=== PATIENT | male | born 1965 | race African-American/Black ===

== ENCOUNTER 2018-08-30 21:00 | Emergency (ER) | payer OTHER ==
[2018-08-30] MEDS ORDERED: RINGERS SOLUTION,LACTATED 1,000 ML IV ONE (22:13)
[2018-08-30 22:27] LABS: HEMOGLOBIN 14.7 g/dL (13.5-17.0); MEAN CORPUSCULAR HEMOGLOBIN 30.3 pg (27.0-33.4); MEAN CORPUSCULAR HGB CONC 33.5 g/dL (32.0-36.0); MEAN CORPUSCULAR VOLUME 91 fl (80-97); PLATELET COUNT 214 10^3/uL (150-450); RED BLOOD COUNT 4.86 10^6/uL (4.35-5.55); RED CELL DISTRIBUTION WIDTH 13.6 % (11.5-14.0); WHITE BLOOD COUNT 7.7 10^3/uL (4.0-10.5)
[2018-08-30 22:45] LABS: ANION GAP 11 (5-19); BLOOD UREA NITROGEN 16 mg/dL (7-20); CALCIUM 9.1 mg/dL (8.4-10.2); CARBON DIOXIDE 24 mmol/L (22-30); CHLORIDE 100 mmol/L (98-107); POTASSIUM 4.6 mmol/L (3.6-5.0); SODIUM 135.3 mmol/L (137-145)
[2018-08-30 22:53] LABS: GLUCOSE 617 mg/dL (75-110)
[2018-08-30 23:02] LABS: VENOUS BLOOD BASE EXCESS 0.9 mmol/L; VENOUS BLOOD HCO3 27.4 mmol/L (20-32); VENOUS BLOOD PCO2 50.3 mmHg (35-63); VENOUS BLOOD PH 7.35 (7.30-7.42)
[2018-08-30] MEDS ORDERED: INSULIN REG, HUMAN 100 UNIT/ML 3 ML VIAL (PYX) SUBCUT ONE (23:48)
[2018-08-31] MEDS ORDERED: GLIPIZIDE XL 5 MG TAB.ER.24 PO ONE (00:06)
[2018-08-31] MEDS ORDERED: METFORMIN HCL 500 MG TABLET PO ONE (00:06)
--- NOTE | 2018-08-31 00:13 | ER Document Report ---
ED General - General Chief Complaint: High Blood Sugar Stated Complaint: BLOOD SUGAR ISSUE Time Seen by Provider: 08/30/18 22:12 Primary Care Provider: CELIO DEL REAL MD [Primary Care Provider] - Follow up as needed Notes: Patient is a 52-year-old male with a past medical history of essential hypertension who presents with several months of polyuria, polydipsia, and intermittent blurring of vision. States that he checked his blood sugar tonight on his daughter's glucometer, found was reading high prompting him to come to the emergency department. He does not formally carry a diagnosis of diabetes. Nothing seems to improve or worsen his symptoms. Symptoms have been worsening over the past several months. He did see his primary care doctor, had blood work done but states he never got the results. He denies any chest pain or shortness of breath. No focal abdominal pain. No focal weakness or numbness. Denies any current symptoms at the time of my assessment. TRAVEL OUTSIDE OF THE [place] IN LAST 30 DAYS: No - Related Data Allergies/Adverse Reactions: No Known Allergies Allergy (Unverified 08/30/18 22:29) Past Medical History - General Information source: Patient - Social History Smoking Status: Never Smoker Frequency of alcohol use: None Drug Abuse: None Lives with: Spouse/Significant other Family History: Reviewed & Not Pertinent Patient has suicidal ideation: No Patient has homicidal ideation: No - Past Medical History Cardiac Medical History: Reports: Hx Hypertension Renal/ Medical History: Denies: Hx Peritoneal Dialysis Review of Systems - Review of Systems Notes: Constitutional: Negative for fever. Positive polyuria and polydipsia HENT: Negative for sore throat. Eyes: Positive for intermittent blurring of vision Cardiovascular: Negative for chest pain. Respiratory: Negative for shortness of breath. Gastrointestinal: Negative for abdominal pain, vomiting or diarrhea. Genitourinary: Negative for dysuria. Musculoskeletal: Negative for back pain. Skin: Negative for rash. Neurological: Negative for headaches, weakness or numbness. 10 point ROS negative except as marked above and in HPI. Physical Exam - Vital signs Vitals: Temp Pulse Resp BP Pulse Ox 98.1 F 82 18 165/97 H 97 08/30/18 21:10 08/30/18 21:10 08/30/18 21:10 08/30/18 21:10 08/30/18 21:10 Interpretation: Hypertensive Notes: PHYSICAL EXAMINATION: GENERAL: Well-appearing, well-nourished and in no acute distress. HEAD: Atraumatic, normocephalic. EYES: Pupils equal round and reactive to light, extraocular movements intact, sclera anicteric, conjunctiva are normal. ENT: nares patent, oropharynx clear without exudates. Moderately dry mucous membranes. NECK: Normal range of motion, supple without lymphadenopathy LUNGS: Breath sounds clear to auscultation bilaterally and equal. No wheezes ra les or rhonchi. HEART: Regular rate and rhythm without murmurs ABDOMEN: Soft, nontender, normoactive bowel sounds. No guarding, no rebound. No masses appreciated. EXTREMITIES: Normal range of motion, no pitting or edema. No cyanosis. NEUROLOGICAL: No focal neurological deficits. Moves all extremities spontaneously and on command. PSYCH: Normal mood, normal affect. SKIN: Warm, Dry, normal turgor, no rashes or lesions noted. Course - Re-evaluation Re-evalutation: 08/31/18 00:07 Presentation of hyperglycemia with associated polyuria and polydipsia. The patient is also had intermittent blurring of vision. There is no evidence of HHS or diabetic ketoacidosis on laboratories or based on clinical history. Patient's vitals are within normal limits. Treatment with insulin and IV fluids given here in the emergency department with appropriate response of the blood sugar. Patient does have primary care follow-up. Patient has been started on metformin and glipizide. We did discuss dietary changes at length. At this time will discharge with return precautions and follow-up recommendations. Verbal discharge instructions given a the bedside and opportunity for questions given. Medication warnings reviewed. Patient is in agreement with this plan and has verbalized understanding of return precautions and the need for primary care follow-up in the next 24-72 hours. 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 You did not have any evidence of a dangerous condition associated with these blood sugars at this time. However, it is very important that you get your blood sugars under control. Please take all of your medications exactly as directed. You should avoid foods that are high in carbohydrates and sugary foods. Losing weight will also help to better control your blood sugars. Please return to emergency department immediately if you develop weakness, persistent vomiting, confusion, or any other symptoms that are concerning to you. Prescriptions: Glipizide [Glipizide Xl] 10 mg PO DAILY #30 tab.er.24 Metformin HCl [Glucophage 500 mg Tablet] 500 mg PO BID #60 tablet Referrals: CELIO DEL REAL MD [Primary Care Provider] - Follow up tomorrow
[2018-08-31] MEDS ORDERED: GLIPIZIDE 5 MG TABLET ONE (00:28)
[2018-08-31 01:42] VITALS: BP 162/111
== END 2018-08-31 01:20 | disposition home or self-care (01) ==
LOC: ER 21:00
DX: E11.65 Type 2 diabetes mellitus with hyperglycemia (principal); I10 Essential (primary) hypertension; R63.1 Polydipsia; R35.8 Other polyuria
CPT/HCPCS: 99284; 36415; 82962; 85027; 80048; 83036; 82803; J1815; J7120

== ENCOUNTER 2019-09-21 06:07 | Day surgery (SDC) | payer BC, OTHER ==
[2019-09-08 11:19] LABS: INTERNATIONAL RATION (INR) 1.03; PARTIAL THROMBOPLASTIN TIME 29.1 SEC (23.5-35.8); PROTHROMBIN TIME 13.5 SEC (11.4-15.4)
[2019-09-08 11:23] LABS: HEMATOCRIT 43.8 % (37.9-51.0); HEMOGLOBIN 15.3 g/dL (13.5-17.0); MEAN CORPUSCULAR HEMOGLOBIN 29.8 pg (27.0-33.4); MEAN CORPUSCULAR VOLUME 85 fl (80-97); PLATELET COUNT 207 10^3/uL (150-450); RED BLOOD COUNT 5.14 10^6/uL (4.35-5.55); WHITE BLOOD COUNT 5.4 10^3/uL (4.0-10.5)
--- NOTE | 2019-09-08 22:39 | EKG REPORT ---
SEVERITY:- BORDERLINE ECG - SINUS RHYTHM BORDERLINE T ABNORMALITIES, INFERIOR LEADS : Confirmed by: Alisha Ernst 08-Sep-2019 22:38:36
[~2019-09-21 06:07] MED LIST: CEFAZOLIN 1 GM/D5W RTU 1 GM/50 ML RTUPB IV ONE; CEFAZOLIN 1 GM/D5W RTU 1 GM/50 ML RTUPB IV PRN; FENTANYL CITRATE INJ/PF 100 MCG/2 ML AMPUL ONE; LACTATED RINGERS 1000 ML IV PRN; LIDOCAINE 0.5% INJ-PF (5 MG/ML) 50 ML SDV SUBCUT PRN; LIDOCAINE 2% INJ-PF (20 MG/ML) 10 ML AMPUL ONE; MIDAZOLAM 2 MG/2 ML INJ ONE; ONDANSETRON HCL INJ/PF 4 MG/2 ML SDV ONE; PROPOFOL INJ 200 MG/20 ML VIAL IV ONE; SUCCINYLCHOLINE CHLORIDE INJ 200 MG/10 ML VIAL ONE
[2019-09-21] MEDS ORDERED: SODIUM BICARBONATE 4.2% INJ (2.5 MEQ/5 ML) VIAL ONE (07:37)
[2019-09-21] MEDS ORDERED: LIDOCAINE 1%/EPINEPHRINE INJ 20 ML VIAL ONE (07:38)
[2019-09-21] MEDS ORDERED: AMLODIPINE BESYLATE 10 MG TABLET PO ONE (08:00)
[2019-09-21] MEDS ORDERED: FENTANYL CITRATE INJ/PF 100 MCG/2 ML AMPUL IV PRN ×3 (08:42)
[2019-09-21] MEDS ORDERED: DIPHENHYDRAMINE HCL 50 MG/ML VIAL IV PRN (08:42)
[2019-09-21] MEDS ORDERED: ONDANSETRON HCL INJ/PF 4 MG/2 ML SDV IV PRN (08:42)
[2019-09-21] MEDS ORDERED: PROMETHAZINE HCL INJ 25 MG/1 ML VIAL IV PRN ×2 (08:42)
--- NOTE | 2019-09-21 10:01 | Operative Report ---
Operative Report DATE OF SURGERY: 09/21/19 PREOPERATIVE DIAGNOSIS: Subfascial mass of the right of the midline posterior s calp POSTOPERATIVE DIAGNOSIS: Same OPERATION: Excision of right of the midline posterior scalp subfascial mass with closure SURGEON: ANKITA JARVIS ANESTHESIA: GA TISSUE REMOVED OR ALTERED: Lipoma of the right of the midline posterior scalp COMPLICATIONS: None ESTIMATED BLOOD LOSS: 5 cc PROCEDURE: The patient was brought into the operating room after being marked. The patient was placed in a prone position . The patient was then prepped with a Betadine scrub and Betadine solution. A timeout was performed. The area for resection was outlined. Injection of 1% lidocaine with epinephrine and bicarbonate was performed for its anesthetic and hemostatic effects. An incision was then made through the skin into the subcutaneous tissue. Dissection was performed [id number] to encounter the mass. There was a very thick fascial covering of the mass which had to be opened to encounter the subfascial mass. Once the mass was encountered a dissection was performed 360 in order to remove the mass Retraction was used to facilitate exposure. Dissection was performed through the deep fascial layer which was split and the mass was contained between the 2 layers of the deep fascia. The dissection was performed in the space between the 2 fascial layers of the deep fascia. [id number] the mass was dissected free of the surrounding tissue. Throughout the case hemostasis was achieved with the bipolar and the Bovie. Once the mass was completely dissected it was then removed. The area was washed with Betadine and sterile water solution. Hemostasis was confirmed. Closure was then performed using 3-0 Vicryl sutures. Because of the size of the mass deeper sutures were placed in order to minimize a deformity. The layers that were dissected were closed [id number] until we reached the deep dermis. 3-0 Vicryl was used for deep dermal sutures. A subcuticular stitch was placed using 3-0 PDS. A central support stitch was placed using 3-0 PDS. The wound was cleaned with Betadine prior to the final closure. Surgical glue was applied with a light pressure dressing was applied. Patient was then reversed from anesthesia and taken to the [facility] for recovery. The approximate size of the mass was 3.25 cm approximately. This dictation was performed with dragon naturally speaking. If there are any inconsistencies or errors please contact the physician. Subjective: No complaints Objective: Vital signs stable afebrile No bleeding Dressing intact Assessment and plan: Doing well. Elevate the operative site. Resume medications. Take antibiotics for 1 day Follow-up Full instructions were given to the patient and family and they understand Portions of this note may be dictated using [employer] voice recognition software. Occasional variations and spelling and vocabulary could be possible and are unintentional. Additionally, there is a chance that some errors may not be caught or corrected. Please notify the offer of any discrepancies noted or if any statements are unclear.
--- NOTE | 2019-09-21 10:03 | Discharge Summary ---
Discharge Summary (SDC) - Discharge Final Diagnosis: Subfascial mass of the right of the midline posterior scalp Date of Surgery: 09/21/19 Condition: Good Treatment or Instructions: Antibiotics for 1 day, then discontinue. Elevate operative area to decrease swelling. Do not strain, or lift heavy objects. Call for excessive bleeding, increased temperature of 101, uncontrolled pain, or excessive nausea or vomiting. You may reach Dr. Dallas through his office at [phone]. In the event of an emergency after hours, then contact Dr. Dallas through [facility]. Return to the office for a postop check on . The time will be scheduled by the nursing staff of [facility] prior to discharge. Please give the patient a copy of their labs and EKG so they can bring this to their PMD. Thank you Portions of this note may be dictated using [employer] voice recognition software. Occasional variations and spelling and vocabulary could be possible and are unintentional. Additionally, there is a chance that some errors may not be caught or corrected. Please notify the offer of any discrepancies noted or if any statements are unclear. Referrals: CELIO DEL REAL MD [Primary Care Provider] - Discharge Diet: As Tolerated Discharge Activity: No Lifting/Push/Pulling Report the Following to Your Physician Immediately: Unusual Bleeding - Keep head straight. Do not twist the neck. No bending or straining. No heavy lifting. Do not flex the neck. Keep the neck extended.
[2019-09-21 11:40] VITALS: BP 149/96
== END 2019-09-21 11:35 | disposition home or self-care (01) ==
LOC: OROUT 06:07
PROVIDERS: ATTEND Plastic Surgery
DX: D17.0 Benign lipomatous neoplasm of skin and subcutaneous tissue of head, face and neck (principal); I10 Essential (primary) hypertension; Z79.899 Other long term (current) drug therapy; E11.9 Type 2 diabetes mellitus without complications
CPT/HCPCS: 93005; 36415; 82962; 85027; 85610; 85730; 88305 ×2; 93010; 21014; J2250; J0690; J3010; J3490 ×3; J0330; J2405; J2704

== ENCOUNTER 2020-03-02 19:47 | Emergency (ER) | payer BC ==
[2020-03-02] MEDS ORDERED: LOPERAMIDE HCL 2 MG CAPSULE PO ONE (22:25)
[2020-03-02] MEDS ORDERED: ACETAMINOPHEN WITH CODEINE #3 TABLET PO ONE (22:26)
[2020-03-02] MEDS ORDERED: ONDANSETRON HCL INJ/PF 4 MG/2 ML SDV IV ONE (22:26)
[2020-03-02] MEDS ORDERED: ACETAMINOPHEN 325 MG TABLET PO ONE (22:26)
--- NOTE | 2020-03-02 22:27 | RADIOLOGY REPORT (SQ) ---
CHEST X-RAY 1 VIEW on 03/02/2020 at 9:56 PM CLINICAL INDICATION: Shortness of breath, fever COMPARISON: None FINDINGS: There is minimal basilar atelectasis. This is a low volume inspiration film. The lungs are otherwise clear. Cardiac, hilar and mediastinal contours are within normal limits. Pulmonary vascularity is within normal limits. IMPRESSION: No acute disease.
--- NOTE | 2020-03-02 22:33 | ER Document Report ---
ED General - General Chief Complaint: Fever Stated Complaint: SHORTNESS OF BREATH, LIGHT HEADED, COUGH, CHILLS Primary Care Provider: CELIO DEL REAL MD [Primary Care Provider] - Follow up as needed TRAVEL OUTSIDE OF THE [place] IN LAST 30 DAYS: No - HPI Notes: 54-year-old male history of diabetes presents with diffuse myalgia, generalized weakness, dry cough, diffuse chest soreness, shortness of breath, diarrhea for past 5 days. Patient has been taking care of his who is sick at home with novel coronavirus. Patient has been having approximately 3-4 episodes of nonbloody nonblack loose stool per day. Patient has been tolerating p.o. but sometimes feels nauseated. Patient has noticed scant streaks of blood in cough over the last day. Patient had distant history of asthma but no recent issues with it and has not used albuterol for current symptoms. Patient denies abdominal pain , exertional chest pain, pleuritic chest pain, syncope, cardiac history, DVT/PE/hyper coag history. Patient has not been taking anything for his symptoms except for Mucinex - Related Data Allergies/Adverse Reactions: No Known Allergies Allergy (Unverified 08/30/18 22:29) Past Medical History - General Information source: Patient - Social History Smoking Status: Never Smoker Frequency of alcohol use: None Drug Abuse: None Family History: Other - has COVID Patient has homicidal ideation: No - Past Medical History Cardiac Medical History: Reports: Hx Hypertension Denies: Hx Coronary Artery Disease, Hx Heart Attack Pulmonary Medical History: Reports: Hx Asthma - CHILDHOOD Denies: Hx Bronchitis, Hx COPD, Hx Pneumonia Neurological Medical History: Denies: Hx Cerebrovascular Accident, Hx Seizures Renal/ Medical History: Denies: Hx Peritoneal Dialysis Musculoskeletal Medical History: Denies Hx Arthritis - Immunizations Hx Diphtheria, Pertussis, Tetanus Vaccination: Yes Review of Systems - Review of Systems Notes: REVIEW OF SYSTEMS: CONSTITUTIONAL : + fever, chills, or sweats. EENT: +URI symptoms, denies throat pain CARDIOVASCULAR: + chest pain, -INKOLAI RESPIRATORY: +cough, +shortness of breath. GASTROINTESTINAL: Denies abdominal pain, +nausea -vomiting. GENITOURINARY: Denies difficulty urinating, painful urination. MUSCULOSKELETAL: Denies neck pain, back pain. SKIN: Denies rash or skin lesions. HEMATOLOGIC : Denies easy bruising or bleeding. LYMPHATIC: Denies swollen, enlarged glands. NEUROLOGICAL: Denies headache, denies change in gait. PSYCHIATRIC: Denies anxiety or stress or depression. Physical Exam - Vital signs Vitals: Temp Pulse Resp BP Pulse Ox 102.6 F H 110 H 18 143/86 H 95 03/02/20 20:45 03/02/20 20:45 03/02/20 20:45 03/02/20 20:45 03/02/20 20:45 - Notes Notes: PHYSICAL EXAMINATION: GENERAL: Well-appearing, well-nourished mildly uncomfortable appearing but nontoxic and in no acute distress HEAD: Atraumatic, normocephalic. EYES: Pupils equal round and appropriate constriction, sclera anicteric, conjunctiva are normal. NECK: Normal range of motion, supple without lymphadenopathy LUNGS: Breath sounds clear to auscultation bilaterally and equal. No wheezes or rales, few rhonchi HEART: Tachycardic with regular rhythm without murmurs rubs or gallops ABDOMEN: Soft, nontender, no guarding, no masses, no CVAT EXTREMITIES: Normal range of motion, no pitting or edema. No cyanosis. NEUROLOGICAL: Awake, alert, conversing appropriately, moves all extremities spontaneously. PSYCH: Normal mood, normal affect. SKIN: Warm, Dry, normal turgor, no rashes or lesions noted. Course - Re-evaluation Re-evalutation: 03/02/20 22:31 Patient presents with constellation of viral symptoms consistent with coronavirus. Patient tachycardic but in proportion to fever. Given the presence of hemoptysis and the high incidence of pulmonary embolism in COVID-19 patients will obtain d-dimer to rule out PE. Also obtain troponin and EKG for possible ACS versus myocarditis, though low pretest probability. Patient in no respiratory distress, good air movement, normal work of breathing. Patient clinically mildly dehydrated, will obtain labs and assess glycemic status, give IV hydration, check electrolytes, and give symptomatic supportive care. 03/03/20 02:27 Patient had CTA without any emboli, does show developing bilateral groundglass opacities consistent with COVID-19. Patient satting in low to mid 90s on room air without any increased work of breathing. Will send home on albuterol every 4 hours and give dexamethasone here in case there is an asthma component despite patient not wheezing. Gave patient extensive return to ED precautions which she demonstrated understanding of. Ready for discharge. The patient was evaluated during the global COVID-19 pandemic and that diagnosis was suspected/considered upon their initial presentation. Their evaluation, treatment and testing was consistent with current guidelines for patients who present with complaints or symptoms that may be related to COVID-19. - Vital Signs Vital signs: Temp Pulse Resp BP Pulse Ox 102.7 F H 110 H 18 143/86 H 95 03/02/20 21:57 03/02/20 20:45 03/02/20 20:45 03/02/20 20:45 03/02/20 20:45 - Laboratory Result Diagrams: 03/02/20 21:45 03/02/20 21:45 Laboratory results interpreted by me: 03/02/20 03/02/20 21:45 21:45 D-Dimer 0.74 H Creatinine 1.29 H Est GFR (MDRD) Non-Af 58 L Glucose 124 H - EKG Interpretation by Me Additional EKG results interpreted by me: 03/02/20 23:29 Heart rate 101, sinus tachycardia, no significant ST elevations or depressions, no significant T wave abnormalities, QTc 436 Discharge - Discharge Clinical Impression: COVID-19 determined by clinical diagnostic criteria Disposition: HOME, SELF-CARE Additional Instructions: Dehydration Dehydration can result from vomiting or diarrhea, fever, or decreased intake of fluids. If severe, hospitalization and intravenous fluids may be required. Most cases are treated at home with fluids by mouth. For the next 24 hours, drink lots of clear fluids. In mild cases, this can be soda pop or sports drinks. For more severe dehydration, the doctor may recommend special fluids such as Pedialyte or Lytren. Try to get three liters (3 quarts) of fluid per day. If vomiting occurs, continue to drink the fluids frequently (every 15 to 20 minutes), but in small amounts (one or two ounces). Depending on the type of dehydration, the doctor may prescribe antinausea medicine or potassium replacements. Call the doctor or return for re-examination if you become progressively weak, vomit repeatedly, or have other new symptoms. Patient was provided with discharge information including: As a person under investigation for Covid 19, the [facility] of Health and Human Services, division of public health advises you to adhere to the following guidance until your test results are reported to you. If your test result is positive, you will receive additional information from your provider and your local health department at that time. Remain at home until you are cleared by the health provider or public health au thorities. Keep a log of visitors to your home, notify any visitors to your home of your isolation status. If you plan to move to a new address or leave the county, notify the local health department in your County. Call your doctor or seek care if you have an urgent medical need. Before seek ing medical care, call ahead to get instructions from the provider before arriving at the medical office clinic or hospital. Notify them that you are being tested for the virus that causes Covid 19 so that arrangements can be made, as necessary, to prevent transmission to others in the healthcare setting. Next, notify the local health department in your county. If a medical emergency arises and you need to call 911, inform the first responders that you are being tested for the virus that causes Covid 19. Next, notify the local health department in your county. Return to the emergency department immediately if you have worsening trouble breathing, dizziness, fainting, rash, bleeding, inability to keep down liquids by mouth, or any other worsening or alarming symptoms. Follow-up with your primary doctor within 1 week Prescriptions: Acetaminophen with Codeine [Tylenol #3 Tablet] 1 each PO Q6HP PRN #8 tablet PRN Reason: For Pain Albuterol Sulfate [Proair HFA Inhalation Aerosol 8.5 gm MDI] 2 puff IH Q4H PRN #1 mdi PRN Reason: Referrals: CELIO DEL REAL MD [Primary Care Provider] - Follow up as needed [facility] [Provider Group] - Follow up as needed
[2020-03-02 22:43] LABS: ABSOLUTE MONOCYTES (AUTO) 0.6 10^3/uL (0.1-1.4); EOSINOPHILS % (AUTO) 0.5 % (0-6); LYMPHOCYTES % (AUTO) 17.4 % (13-45); MEAN CORPUSCULAR VOLUME 86 fl (80-97); RED CELL DISTRIBUTION WIDTH 13.4 % (11.5-14.0); TOTAL CELLS COUNTED % (AUTO) 100 %
[2020-03-02] MEDS: RINGERS SOLUTION,LACTATED 1,000 ML IV PRN (22:43)
[2020-03-02 22:49] LABS: ALKALINE PHOSPHATASE 71 U/L (38-126); ANION GAP 7 (5-19); ASPARTATE AMINO TRANSFERASE 25 U/L (17-59); BILIRUBIN,DIRECT 0.1 mg/dL (0.0-0.4); BILIRUBIN,TOTAL 0.7 mg/dL (0.2-1.3); BLOOD UREA NITROGEN 16 mg/dL (7-20); CALCIUM 8.6 mg/dL (8.4-10.2); CARBON DIOXIDE 29 mmol/L (22-30); CHLORIDE 102 mmol/L (98-107); CREATINE KINASE 91 U/L (55-170); GLUCOSE 124 mg/dL (75-110); PHOSPHORUS 3.3 mg/dL (2.5-4.5); POTASSIUM 3.9 mmol/L (3.6-5.0); TOTAL PROTEIN 7.5 g/dL (6.3-8.2)
[2020-03-02 22:57] LABS: ABSOLUTE NEUT (AUTO) 4.3 10^3/uL (1.7-8.2); BASOPHILS % (AUTO) 0.5 % (0-2); HEMATOCRIT 42.7 % (37.9-51.0); HEMOGLOBIN 14.6 g/dL (13.5-17.0); MEAN CORPUSCULAR HEMOGLOBIN 29.4 pg (27.0-33.4); MEAN CORPUSCULAR HGB CONC 34.1 g/dL (32.0-36.0); MONOCYTES % (AUTO) 9.6 % (3-13); PLATELET COUNT 183 10^3/uL (150-450); RED BLOOD COUNT 4.95 10^6/uL (4.35-5.55)
[2020-03-03] MEDS: RINGERS SOLUTION,LACTATED 1,000 ML IV PRN (00:26)
[2020-03-03] MEDS ORDERED: ALBUTEROL SULFATE HFA (90 MCG/PUFF) 8 GM MDI (1 MDI/ER DISP) IH ONE (01:14)
--- NOTE | 2020-03-03 01:52 | RADIOLOGY REPORT (SQ) ---
EXAM: CT Angiography Chest With Intravenous Contrast EXAM DATE/TIME: 03/03/2020 at 12:54 AM CLINICAL HISTORY: The patient is 54 years old and is Male; cp sob positive dimer 0.74 CREAT 1.29 TECHNIQUE: Axial computed tomographic angiography images of the chest with intravenous contrast. Sagittal and coronal reformatted images were created and reviewed. This CT exam was performed using one or more of the following dose reduction techniques: automated exposure control, adjustment of the mA and/or kV according to patient size, and/or use of iterative reconstruction technique. MIP reconstructed images were created and reviewed. COMPARISON: Chest radiograph from 03/02/2020 FINDINGS: PULMONARY ARTERIES: There is suboptimal visualization of the pulmonary arteries secondary to phase of contrast. No central pulmonary emboli visualized. Peripheral emboli, beginning at the segmental level, cannot be excluded. AORTA: No acute findings. No thoracic aortic aneurysm or dissection. LUNGS: There are mild, patchy areas of groundglass opacification in the lungs bilaterally. There is also atelectasis in the bilateral lung bases. No discrete lung mass visualized. PLEURAL SPACE: No significant effusion. No pneumothorax. HEART: No cardiomegaly. No pericardial effusion. BONES/JOINTS: No acute fracture. No dislocation. SOFT TISSUES: Unremarkable. LYMPH NODES: There is a mildly prominent right paratracheal lymph node measuring 1.3 cm in short axis diameter (series 3, image 25). Otherwise, no significant lymph node enlargement visualized. ADRENALS: There is a left adrenal nodule measuring 2.8 cm. This is primarily fat density and is compatible with a myelolipoma. No follow-up imaging indicated. The right adrenal gland is unremarkable. KIDNEYS AND URETERS: There is minimal bilateral perinephric stranding which appears chronic. IMPRESSION: 1. Suboptimal visualization of the pulmonary arteries secondary to the phase of contrast. No central pulmonary emboli identified. Peripheral emboli cannot be completely excluded on this exam. 2. There are mild, patchy areas of groundglass opacification in the lungs bilaterally. This is suspicious for atypical pneumonia.
[2020-03-03] MEDS ORDERED: DEXAMETHASONE 4 MG TABLET PO ONE (02:31)
[2020-03-03 07:46] VITALS: BP 132/83
--- NOTE | 2020-03-03 16:42 | EKG REPORT ---
SEVERITY:- ABNORMAL ECG - SINUS TACHYCARDIA CONSIDER LEFT VENTRICULAR HYPERTROPHY PROBABLE INFERIOR INFARCT, AGE INDETERMINATE : Confirmed by: Richard Barrios MD 03-Mar-2020 16:41:41
== END 2020-03-03 03:20 | disposition home or self-care (01) ==
LOC: ER 19:47
DX: U07.1 COVID-19 (principal); R50.9 Fever, unspecified; R06.02 Shortness of breath; R42 Dizziness and giddiness; R04.2 Hemoptysis; I10 Essential (primary) hypertension; J45.909 Unspecified asthma, uncomplicated
CPT/HCPCS: 99285; 96361; 96374; 36415; 82550; 83735; 84100; 85025; 87635; 80053; 84484; 85379; 71045; 71275; 93005; 93010; J8540; J2405; J7120 ×2; C9803